=== PATIENT | male | born 1950 | race Caucasian/White ===

== ENCOUNTER 2022-06-26 01:05 | Emergency (ER) | payer MEDICAID ==
[~2022-06-26] VITALS: Ht 182.9 cm; Wt 77.1 kg
--- NOTE | 2022-06-26 01:12 | NUR ---
PT ODALIS HUNTLEYS. TAKEN TO BED 4
[2022-06-26 01:14] VITALS: BP 121/81
--- NOTE | 2022-06-26 01:15 | NUR ---
PT BIB EMS. PER EMS PT IS HOMELESS AND UNABLE TO STATE LAST TIME HE HAD A MEAL. PT IS A&OX4, ASKING FOR SANDWICH. PT ABLE TO MAKE DECISIONS FOR HIMSELF AND HAS BEEN HOMELESS FOR 6 YEARS BY CHOICE. 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 PT THEN PROCEEDS TO ASK FOR SOME FOOD. WHEN ASKED ABOUT HIS LAST MEAL PT STATED HE ATE AT APPROXIMATELY 1700 TODAY. WILL PROVIDE A SANDWICH AT THIS TIME. PT C/O LEFT RINGER FINGER PAIN HE WAS BITTEN BY A SPIDER. NOTED REDNESS AND SWELLING. VSS.
--- NOTE | 2022-06-26 01:37 | NUR ---
[facility] [facility] AT BEDSIDE
[2022-06-26 03:02] LABS: BASOPHILS # (AUTO) 0.1 K/uL (0.00-0.22); BASOPHILS % (AUTO) 1.2 % (0.0-2.0); EOSINOPHILS # (AUTO) 0.1 K/uL (0-0.4); HEMATOCRIT 40.9 % (36-52); HEMOGLOBIN 13.8 g/dL (12.0-18.0); LYMPHOCYTES # (AUTO) 1.9 K/uL (2.0-11.5); LYMPHOCYTES % (AUTO) 25.6 % (20.5-51.1); MEAN CORPUSCULAR HEMOGLOBIN 31 pg (27-31); MEAN CORPUSCULAR HGB CONC 34 g/dL (33-37); MEAN CORPUSCULAR VOLUME 90.8 fL (80-94); MONOCYTES # (AUTO) 0.8 K/uL (0.8-1.0); MONOCYTES % (AUTO) 10.9 % (1.7-9.3); NEUTROPHILS # (AUTO) 4.4 K/uL (1.8-7.7); NEUTROPHILS % (AUTO) 60.3 % (42.2-75.2); PLATELET COUNT (AUTO) 293 K/uL (140-450); RED CELL DISTRIBUTION WIDTH 14.4 % (11.6-13.7); WHITE BLOOD COUNT (AUTO) 7.2 K/uL (4.8-10.8)
[2022-06-26 03:29] LABS: ANION GAP 11.6 (8-16); ASPARTATE AMINOTRANSFERASE 21 U/L (15-37); CARBON DIOXIDE 27.7 mmol/L (21-32); CHLORIDE 105 mmol/L (98-107); CREATININE 2.3 mg/dL (0.6-1.3); GFR ARICAN-AMERICAN 36 mL/min (>90); GLUCOSE 124 mg/dL (74-106); POTASSIUM 3.3 mmol/L (3.5-5.1); SODIUM SERUM 141 mmol/L (136-145); TOTAL BILIRUBIN 0.3 mg/dL (0.0-1.0); UREA NITROGEN, BLOOD 17 mg/dL (7-18)
[2022-06-26 03:33] LABS: ACETAMINOPHEN < 0.5 ug/ml (10-30)
[2022-06-26 03:35] LABS: BARBITURATE, URINE NEGATIVE ng/ml (NEG <=200); BENZODIAZEPINE, URINE NEGATIVE ng/mL (NEG <=200); CANNABINOID, URINE NEGATIVE ng/mL (NEG <=50); COCAINE, URINE NEGATIVE ng/mL (NEG <=300); OPIATE, URINE NEGATIVE ng/mL (NEG <=2000); PHENCYCLIDINE SCREEN,URINE NEGATIVE ng/mL (NEG <=25)
--- NOTE | 2022-06-26 03:37 | NUR ---
X-Ray at bedside.
--- NOTE | 2022-06-26 04:14 | NUR ---
PT RESTING, NO S/S OF DISTRESS NOTED. VSS. WILL CONTINUE TO MONITOR.
--- NOTE | 2022-06-26 06:20 | NUR ---
DR. DENG SPEAKING WITH PATIENT VIA REMOTE COMMUNICATION
--- NOTE | 2022-06-26 07:19 | NUR ---
REPORT TO CADEN HERNANDES
--- NOTE | 2022-06-26 07:20 | NUR ---
RECEIVED REPORT FROM LMAAR HERNANDES, TRANSFER OF CARE AT THIS TIME, RECEIVED PT IN SUPINE,EYES CLOSED, RESPIRATIONS EVEN AND UNLABORED
[2022-06-26 08:05] VITALS: BP 158/83
--- NOTE | 2022-06-26 08:11 | NUR ---
Patient discharged with v/s stable. Written and verbal after care instructions given and explained. Patient verbalized understanding. Ambulatory with steady gait. All questions addressed prior to discharge. Advised to follow up with PMD. WITH HOMELESS PACKET, ALCOHOL AND SUBSTANCE ABUSE PACKET, FOOD. PT IN APPROPRIATE CLOTHES FOR THE WEATHER.
== END 2022-06-26 08:10 | disposition home or self-care (01) ==
LOC: MED 01:05
DX: M79.645 Pain in left finger(s) (principal); Z20.822 Contact with and (suspected) exposure to COVID-19; Z59.00 Homelessness unspecified; F17.200 Nicotine dependence, unspecified, uncomplicated; Z72.89 Other problems related to lifestyle; Z88.0 Allergy status to penicillin
CPT/HCPCS: 36415; 73130; 80053; 80305; 85025; 85651; 86140; 87426; 99285; G0480; G0482; Q0092; 99284